=== PATIENT | male | born 1975 | race Caucasian/White ===

== ENCOUNTER 2019-09-02 07:00 | Day surgery (SDC) | payer MEDICARE ==
[2019-09-01 12:11] VITALS: BMI 34.7
[2019-09-02 09:49] VITALS: BP 129/76; TEMP 98.1
--- NOTE | 2019-09-02 10:08 | CT ---
CT LUMBAR MYELOGRAM: INDICATIONS: 44-year-old male with back pain and radiculopathy COMPARISON: None. TECHNIQUE: Multiple CT images were obtained of the lumbar spine following the intrathecal administration of an O mnipaque 300 Msolution. Please see the lumbar myelogram for details concerning the injection technique. Axial, coronal, and sagittal reformatted images were constructed from the raw data. FINDINGS: Visualized retroperitoneal and paravertebral soft tissues: There is a 3.3 cm exophytic cyst off the s uperior pole of the left kidney. The gallbladder is surgically absent. No enlarged lymph nodes or free fluid is evident. Spinal alignment: Within normal limits. Spinal instrumentation or postsurgical change: There is partial visualization of instrumentation invo lving the lower thoracic spine. There are bilateral pedicle screws at T12. 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 At L5-S1, there is some loss of the normal disc space height in addition to a broad-based disc bulge and yubl-qu-ufrknlwk facet joint degenerative change inducing mild bilateral neural foraminal narrowing.. At L4-5, there is a broad-based disc bulge at L4-5. There is mild facet hypertrophy. There is congeni jozef vertebral canal narrowing. There is mild crowding of the nerve roots at the L4-5 level. There is mild bilateral neural foraminal narrowing. At L3-4, there is mild broad-based bulge and mild central canal narrowing and mild bilateral neural f oraminal narrowing. At L2-3, there is no appreciable central canal or neuroforaminal narrowing. At L1-L2, there is no appreciable central canal or neuroforaminal narrowing. At T12-L1, there is no appreciable central canal or neuroforaminal narrowing. IMPRESSION: 1. 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 2. Mild central canal and mild bilateral neural foraminal narrowing at L4-5 and L3-4. 3. Mild bilateral neural foraminal narrowing at L5-S1. 4. Left renal cyst
--- NOTE | 2019-09-02 10:12 | RAD ---
LUMBAR MYELOGRAM: INDICATION: 44-year-old male with low back pain and thoracic radiculitis TECHNIQUE: Informed consent was obtained. Preprocedure security checker images were performed for guidance purposes. Site overlying the left L2-3 interlaminar space was marked. The site was prepped and draped in the [facility] sterile fashion. Buffered 1% lidocaine was administered to the overlying subcutaneous tissues. Under fluoroscopic guidance, 2 separate attempts were made to access the thecal sac within the left L 2-3 interlaminar space that proved unsuccessful. Attempt was then made at the left L3-4 interlaminar space utilizing a 5 inch 22-gauge spinal needle. This also proved to be unsuccessful. With Dr. Papa Domínguez in assistance, the site overlying the right L2-3interlaminar space was marked. T he site was prepped and draped in the usual sterile fashion. Buffered 1% lidocaine was administered to the overlying subcutaneous tissues. Under fluoroscopic guidance, a 22-gauge spinal needle was guided down into the thecal sac by Dr. Kaela centeno. There was spontaneous return of normal appearing CSF fluid. Following this 15 mL of Isovue M was injected within the thecal sac by myself. There was fluoroscopic visualization of internal nerve roots confirming intrathecal location of needle placement. The inner stylette was replaced within the needle and the needle removed. Pressure was held at the biopsy site until hemostasis was obtained. Following this, the patient was placed in Trendelenburg position contrast was seen fluoroscopically m igrate to the level of the thoracic spine. The biopsy site was then cleansed and bandage. The patient tolerated the injection without difficulty. Total fluoroscopic time was 2.3 minutes. Total exposure was 1014.2microGy/m2. FINDINGS: No acute abnormality. IMPRESSION: Successful lumbar myelogram
--- NOTE | 2019-09-02 10:30 | CT ---
CT THORACIC MYELOGRAM INDICATION: Thoracic spine pain and radiculitis COMPARISON: MRI of the thoracic spine dated January 13, 2013 TECHNIQUE: Multiple CT images were obtained of the thoracic spine following intrathecal administratio n of Isovue 300 M solution. Please see the lumbar myelogram for details concerning the injection technique. Axial, coronal and sagittal reformatted images were constructed from the raw data. FINDINGS: Spinal alignment: There is postsurgical change consistent with a posterior lateral interbody fusion o f the thoracic spine spanning T4-T12. The instrumentation appears intact. There are healed burst fractures involving T7, T8 and T9. There are healed superior endplate compression fractures involving T5 and T6. No acute fracture is evident. 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 There is also ankylosis of the posterior lateral aspects of the left sixth through eighth ribs. There is left lateral shift of the spinal column at the T7 vertebral fracture site approximately 1.5 cm that that was related to the burst frac ture at T7. This is best seen at image 35 of the coronal series. Paraspinal soft tissues, visualized retroperitoneum and mediastinum: There are a few scattered calcif ied granuloma within the lungs. There is some mucous debris seen within the tracheal airway. There are calcified lymph nodes within the mediastinum. There is fatty infiltration of the liver. There is an exophytic 3.3 cm cyst off superior pole left kidney. There are gallbladder is surgically absent. At T1-T2, there is no appreciable osseous central canal or neural foraminal narrowing. At T2-T3, there is no appreciable osseous central canal or neural foraminal narrowing. At T3-T4, there is no appreciable osseous central canal or neural foraminal narrowing. At T4-T5, there is no appreciable osseous central canal or neural foraminal narrowing. At T5-T6, there is mild facet hypertrophy at T5-T6 causing mild bilateral osseous neural foraminal na rrowing. At T6-T7, there is mild hypertrophy of the fusion complex posterolaterally at T6-T7 causing some mild narrowing of the neural foramina bilaterally. At T7-T8, there is healed bone from the burst fracture as well as the posterior lateral fusion comple x at T7-T8 inducing mild to moderate osseous neural foraminal narrowing bilaterally, left greater than right. At T8-T9, there is healed bone from the T8 burst fracture and the fusion complex at T8-T9 bilaterally that induces mild to moderate left and moderate right osseous neural foraminal narrowing. At T9-T10, there is no appreciable osseous central canal or neural foraminal narrowing. At T10-T11, there is facet hypertrophy inducing mild left neural foraminal narrowing At T11-T12, there is no appreciable osseous central canal or neural foraminal narrowing. At T12-L1, there is no appreciable osseous central canal or neural foraminal narrowing. IMPRESSION: 1. Posterior lateral fusion of T4-T12 appears well-healed. The burst fractures at T7, T8 and T9 appea r well-healed. Mild superior endplate compression fractures at T5 and T6 appear well-healed. There is healed lateral subluxation at the T6-T7 intervertebral level related to the prior T7 burst fractur e. 2. Healed deformity of the burst fractures in addition to the posterior lateral fusion complex induce s multilevel osseous neural foraminal narrowing as detailed above. 3. Findings of prior granulomatous disease, fatty liver and left renal cyst
[2019-09-02] MEDS ORDERED: Iopamidol-M 300 61% 15 ML VIAL ONE (16:13)
== END 2019-09-02 10:10 | disposition home or self-care (01) ==
LOC: RAD 07:00 → EDSEX 08:00 → EDSTATUS 08:00 → RAD 10:10
PROVIDERS: ATTEND Specialist
PROC: B01B1ZZ Fluoroscopy of Spinal Cord using Low Osmolar Contrast (ICD-10-PCS; principal; 2019-09-02)
DX: M47.24 Other spondylosis with radiculopathy, thoracic region (principal); M47.26 Other spondylosis with radiculopathy, lumbar region; M51.16 Intervertebral disc disorders with radiculopathy, lumbar region; M48.061 Spinal stenosis, lumbar region without neurogenic claudication; Q76.49 Other congenital malformations of spine, not associated with scoliosis; G89.4 Chronic pain syndrome; M96.1 Postlaminectomy syndrome, not elsewhere classified; D71 Functional disorders of polymorphonuclear neutrophils; K76.0 Fatty (change of) liver, not elsewhere classified; N28.1 Cyst of kidney, acquired; J45.909 Unspecified asthma, uncomplicated; M19.90 Unspecified osteoarthritis, unspecified site; F17.200 Nicotine dependence, unspecified, uncomplicated; Z79.52 Long term (current) use of systemic steroids; Z79.899 Other long term (current) drug therapy; Z88.2 Allergy status to sulfonamides; Z88.5 Allergy status to narcotic agent; Z91.013 Allergy to seafood; Z91.040 Latex allergy status; Z98.1 Arthrodesis status
CPT/HCPCS: 62305; 72129; 72132; Q9967

== ENCOUNTER → 2019-11-12 | Outpatient (CLI) | payer MEDICARE | LOC: SLEEPLAB 19:00 | PROVIDERS: ATTEND Family Medicine | DX: G47.33 Obstructive sleep apnea (adult) (pediatric) (principal); R06.83 Snoring; G47.00 Insomnia, unspecified; G47.10 Hypersomnia, unspecified; I10 Essential (primary) hypertension; R63.4 Abnormal weight loss; E66.9 Obesity, unspecified; Z68.36 Body mass index [BMI] 36.0-36.9, adult | CPT/HCPCS: 95811 ==

== ENCOUNTER 2020-10-14 12:32 | Outpatient (CLI) | payer MEDICARE ==
[2020-10-14 14:21] LABS: Hemoglobin 13.5 g/dL (13.5-17.5); Mean Corpuscular HGB CONC 32.9 g/dL (32.0-36.0); Mean Corpuscular Hemoglobin 31.5 pg (27.0-33.0); Mean Corpuscular Volume 95.6 fl (81.2-95.1); Platelet Count 300 10x3/uL (150-450); RBC Distribution Width 13.5 % (11.5-14.5); Red Blood Cell (RBC) Count 4.29 10x6/uL (4.32-5.72)
[2020-10-14 14:30] LABS: Anion Gap 14 mmol/L (10-20); BUN (Urea Nitrogen) 17 mg/dL (8.9-20.6); Calc. Creatinine Clearance 0 mL/min (70-130); Calcium 9.7 mg/dL (7.8-10.44); Carbon Dioxide 25 mmol/L (22-29); Chloride 107 mmol/L (98-107); Glucose 129 mg/dL (70-105); Potassium 4.2 mmol/L (3.5-5.1); Sodium 142 mmol/L (136-145)
[2020-10-15 15:23] LABS: SARS-CoV-2 PCR by NAA Not Detected (NotDetected)
== END 2020-10-14 12:33 | disposition home or self-care (01) ==
LOC: LABBT 12:32
PROVIDERS: ATTEND Otolaryngology Plastic Surgery within the Head & Neck
DX: Z01.818 Encounter for other preprocedural examination (principal); J34.2 Deviated nasal septum; J34.3 Hypertrophy of nasal turbinates; J32.0 Chronic maxillary sinusitis; J32.2 Chronic ethmoidal sinusitis; G47.33 Obstructive sleep apnea (adult) (pediatric); J34.89 Other specified disorders of nose and nasal sinuses; Z20.822 Contact with and (suspected) exposure to COVID-19
CPT/HCPCS: 80048; 85027; 93005; U0003; U0005; 93010

== ENCOUNTER 2020-10-19 08:58 | Day surgery (SDC) | payer MEDICARE ==
[2020-10-18 10:28] VITALS: BMI 36.8
[2020-10-19] MEDS ORDERED: AFRIN NASAL MIST 15 ML BOT ONE ×2 (09:17→09:53)
[2020-10-19] MEDS ORDERED: Bacitracin Zinc Ointment 30 gm TUBE ONE (09:53)
[2020-10-19] MEDS ORDERED: Lidocaine 1% w/Epinephrine 1:100K 20 ML VIAL ONE (09:53)
[2020-10-19] MEDS ORDERED: Midazolam HCl 2 mg/2 ml Vial ONE (10:02)
[2020-10-19] MEDS ORDERED: HYDROmorphone 0.5 MG/0.5 ML SYRINGE ONE ×3 (10:08→12:39)
[2020-10-19] MEDS ORDERED: Dexamethasone 20 MG/5 ML VIAL ONE (10:52)
[2020-10-19] MEDS ORDERED: PROPOFOL 200 MG/20 ML VIAL ONE (10:52)
[2020-10-19] MEDS ORDERED: Ondansetron PF 4 MG/2 ML Vial ONE (10:52)
[2020-10-19] MEDS ORDERED: Succinylcholine 200 MG/10 ml SYRINGE FS ONE (10:52)
[2020-10-19] MEDS ORDERED: Lidocaine 1% PF 5 ML VIAL ONE (10:52)
[2020-10-19] MEDS ORDERED: methylPREDNISolone Acetate 40 mg/ml Vial ONE (11:00)
[2020-10-19] MEDS ORDERED: Meperidine HCl/PF 25 MG/ML VIAL ONE (11:58)
[2020-10-19] MEDS ORDERED: Morphine 4 MG/ML VIAL ONE (12:22)
[2020-10-19] MEDS ORDERED: Morphine 2 MG/ML VIAL ONE (12:29)
== END 2020-10-19 15:30 | disposition home or self-care (01) ==
LOC: SDC 08:58
PROVIDERS: ATTEND Otolaryngology Plastic Surgery within the Head & Neck
PROC: 0CTNXZZ Resection of Uvula, External Approach (ICD-10-PCS; principal; 2020-10-19)
PROC: 09SM0ZZ Reposition Nasal Septum, Open Approach (ICD-10-PCS; 2020-10-19)
PROC: 09TL0ZZ Resection of Nasal Turbinate, Open Approach (ICD-10-PCS; 2020-10-19)
PROC: 099T8ZZ Drainage of Left Frontal Sinus, Via Natural or Artificial Opening Endoscopic (ICD-10-PCS; 2020-10-19)
PROC: 099Q8ZZ Drainage of Right Maxillary Sinus, Via Natural or Artificial Opening Endoscopic (ICD-10-PCS; 2020-10-19)
PROC: 099R8ZZ Drainage of Left Maxillary Sinus, Via Natural or Artificial Opening Endoscopic (ICD-10-PCS; 2020-10-19)
PROC: 099S8ZZ Drainage of Right Frontal Sinus, Via Natural or Artificial Opening Endoscopic (ICD-10-PCS; 2020-10-19)
PROC: 09TV8ZZ Resection of Left Ethmoid Sinus, Via Natural or Artificial Opening Endoscopic (ICD-10-PCS; 2020-10-19)
PROC: 09TU8ZZ Resection of Right Ethmoid Sinus, Via Natural or Artificial Opening Endoscopic (ICD-10-PCS; 2020-10-19)
DX: J32.8 Other chronic sinusitis (principal); J34.2 Deviated nasal septum; J34.3 Hypertrophy of nasal turbinates; J34.89 Other specified disorders of nose and nasal sinuses; G47.33 Obstructive sleep apnea (adult) (pediatric); K13.79 Other lesions of oral mucosa; I35.1 Nonrheumatic aortic (valve) insufficiency; I25.2 Old myocardial infarction; F17.210 Nicotine dependence, cigarettes, uncomplicated; Z79.899 Other long term (current) drug therapy; Z88.2 Allergy status to sulfonamides; Z88.5 Allergy status to narcotic agent; Z91.013 Allergy to seafood; Z91.040 Latex allergy status
CPT/HCPCS: 30140; 30520; 31253; 31256; 42140; J2270; 88302; J1100; J1170; J2175; J2250; J2405; J2704; J2920

== ENCOUNTER 2024-02-20 15:41 | Outpatient (CLI) | payer OTHER | END 2024-02-20 15:42 | disposition home or self-care (01) | LOC: CT 15:41 | PROVIDERS: ATTEND Internal Medicine Cardiovascular Disease | DX: I25.2 Old myocardial infarction (principal); I77.810 Thoracic aortic ectasia | CPT/HCPCS: 71275 ==